=== PATIENT | female | born 2000 | race African-American/Black ===

== ENCOUNTER 2022-03-28 08:29 | Emergency (ER) | payer BC ==
[2022-03-28] MEDS ORDERED: Sodium Chloride 0.9% 10 ML Syringe FLUSH PRN (08:51)
[2022-03-28] MEDS: Sodium Chloride 0.9% 1,000 ML IV ONE (09:00)
[2022-03-28] MEDS: Acetaminophen 500 MG Tab PO ONE (09:02)
[2022-03-28] MEDS: Metoclopramide 10 MG/2 ML SDV IVPUSH ONE (09:03)
[2022-03-28] MEDS: diphenhydrAMINE 50 MG/ML SDV IVPUSH ONE (09:06)
[2022-03-28 10:09] LABS: CORONAVIRUS COVID-19 NAA POSITIVE (NEGATIVE)
== END 2022-03-28 10:10 | disposition home or self-care (01) ==
LOC: CC.ED 08:29
DX: U07.1 COVID-19 (principal); R51.9 Headache, unspecified
CPT/HCPCS: 0240U; 96361; 96374; 96375; 99283; 99284; A9270; J1200; J2765; J7030